=== PATIENT | female | born 1995 | race African-American/Black ===

== ENCOUNTER 2020-11-26 14:02 | Emergency (ER) | payer SELFPAY ==
--- NOTE | ~2020-11-26 | XR_ITS ---
EXAMINATION: XR CHEST CLINICAL INFORMATION: Sickle cell crisis COMPARISON: None TECHNIQUE: Frontal view of the chest was obtained. FINDINGS: Right chest wall Mediport terminates of the right chest wall, catheter within the superior right atrium. There are a few patchy opacities over the lungs which may relate to portable technique. No pleural effusion or pneumothorax. Normal heart size and pulmonary vascularity. Bones are unremarkable.. XR/XR chest 1V IMPRESSION: There are a few bilateral patchy opacities projecting over the lungs, nonperipheral in distribution. Favor summation shadow related to portable technique. Recommend departmental radiographs.
[2020-11-26 14:21] VITALS: BP 113/71; PULSE 125; RESP 20; TEMP 36.8; O2SAT 97; BMI 22.1
--- NOTE | 2020-11-26 16:11 | ED.GENADULT ---
HPI - General Adult General Chief complaint: General Medical Stated complaint: SICKLE CELL CRISIS Time Seen by Provider: 11/26/20 16:00 Source: patient Mode of arrival: ambulatory Limitations: no limitations History of Present Illness HPI narrative: Patient comes to emergency room complaining of a sickle cell crisis. Patient is visiting from [place]. Patient has history of lupus, sickle cell, anti phospholipid syndrome and PEs. Patient states that she usually gets 1 L of lactated Ringer's and IV Dilaudid every month, also has p.o. Dilaudid medication p.r.n. pain. Yesterday she received her IV fluids through the port. Patient is trying to avoid to stay out of the hospital, she came for her mother's , states she only comes to emergency room when her pain is 9/10 and her p.o. Dilaudid does not help. Patient denies chest pain, no shortness of breath, no abdominal pain. Patient states that most of her pain is ?bony pain? from the hips down. Patient states that she knows that she will be anemic, she only gets blood transfusion when her hemoglobin is below 5.0 MD complaint: Sickle cell crisis Related Data Home Medications Medication Instructions Recorded Confirmed Dilaudid 11/26/20 Eliquis 11/26/20 Imuran 11/26/20 OxyContin 11/26/20 folic acid 11/26/20 hydroxyurea 11/26/20 prednisone 11/26/20 tizanidine 11/26/20 11/26/20 Allergies Allergy/AdvReac Type Severity Reaction Status Date / Time No Known Allergies Allergy Verified 11/26/20 14:26 Review of Systems Review of Systems: Constitutional : No Weight loss, No Fever, No Chills, No Night Sweats, No Fatigue, No Malaise ENT/Mouth : No Hearing loss, No Ear Pain, No Nasal Congestion, No Sinus Pain, No Hoarseness, No sore throat, No Rhinorrhea, No Swallowing Difficulty Eyes: No Eye Pain, No Swelling, No Redness, No Foreign Body, No Discharge, No Vision Changes Cardiovascular : No Chest Pain, No SOB, No Dyspnea on Exertion, No Orthopnea, No Edema, No Palpitations Respiratory : No Cough, No Sputum, No Wheezing, No Smoke Exposure, No Dyspnea Gastrointestinal : No Nausea, No Vomiting, No Diarrhea, No Constipation, No abdominal Pain, No Hematochezia, No Melena Genitourinary : no irregular bleeding, No Dysuria, No Urinary Frequency, No Hematuria, No Urinary Incontinence, No Urgency, No Flank Pain, No Urinary Flow Changes, No Hesitancy Musculoskeletal : Patient complaining of bilateral hip pain, leg pain. Skin : No Skin Lesions, No rash Neuro : No Weakness, No Numbness, No Paresthesias, No Loss of Consciousness, No Dizziness, No Headache Psych : No Anxiety/Panic, No Depression, No SI/HI/AH/VH, No Social Issues, Heme/Lymph: No Bruising, No Bleeding,No Lymphadenopathy Endocrine : No Polyuria, No Polydipsia, No Temperature Intolerance [facility] Past Medical History Medical History (Updated 11/26/20 @ 16:20 by Nisa Packer MD) Antiphospholipid syndrome Lupus Pulmonary emboli Sickle cell anemia with crisis Sickle cell anemia with pain Social History Social History Advance Directives: No Advance Directives Information Provided: No Physical Exam Vital Signs: Vital Signs: Last Vital Signs Temp 98.2 F 11/26/20 14:21 Pulse 125 H 11/26/20 14:21 Resp 20 11/26/20 14:21 BP 113/71 11/26/20 14:21 Pulse Ox 97 11/26/20 14:21 Body Mass Index 22.1 Appearance: Alert. Oriented X3. No acute distress. Eyes: Pupils equal, round and reactive to light. ENT: Pharynx normal. Neck: Normal inspection. Neck supple. No lymph nodes noted. No crepitus CVS: Normal heart rate and rhythm. Pulses normal. Normal S1 and S2 Respiratory: No respiratory distress. Breath sounds normal. No Wheezing. No rales Abdomen: Soft and nontender. No rigidity. No distention. good BS x4 Skin: Skin warm and dry. Normal skin color. Normal skin turgor. Extremities: No lower extremity edema. Pain to palpation over hips and lower extremities Neuro: Oriented X 3. No motor deficit. No sensory deficit. Moving all extermities. No slurred speech. Course Course Course Narrative: Patient's labs and imaging are pending. Patient received IV fluids and IV Dilaudid. Sign-out given to Dr. Ba. Discharge Plan Discharge Clinical Impression: Sickle cell crisis Prescriptions: No Action Dilaudid RF: 0 Eliquis RF: 0 Imuran RF: 0 OxyContin RF: 0 folic acid RF: 0 hydroxyurea RF: 0 prednisone RF: 0 tizanidine RF: 0
[2020-11-26] MEDS: HYDROmorphone HCl 2 MG/ML VIAL IVPUSH ×3 (16:47→19:25)
[2020-11-26] MEDS: ondansetron HCL 4 MG/2 ML VIAL IVPUSH (16:47)
[2020-11-26] MEDS: diphenhydrAMINE HCL 50 MG/ML VIAL IVPUSH (16:47)
[2020-11-26] MEDS: 0.9 % Sodium Chloride 1,000 ML 999 ML IVCONT ×2 (16:49→18:29)
[2020-11-26 17:10] LABS: Appearance Urine CLEAR; Color Urine YELLOW; Glucose Urine UA NEG (NEG); Leukocyte Esterase Urine NEG (NEG); Nitrite Urine NEG (NEG); Urine Blood NEG (NEG); Urine Ketones NEG (NEG); Urine Protein NEG (NEG-TRACE)
[2020-11-26 17:11] LABS: UPreg QC Valid YES; Urine Pregnancy NEGATIVE (NEGATIVE)
[2020-11-26 17:26] LABS: MANUAL DIFF FLAG SCAN; PLT CLUMP 1; Retic HGB Equivalent 29.7 pg (30.0-35.0); SCAN SMEAR FLAG 1
[2020-11-26 17:29] LABS: Basophils Percent Auto 0.2 % (0-2); Eosinophils Absolute Auto 0.1 X10*3/uL (0.0-0.4); Eosinophils Percent Auto 1.2 % (0-4); Hematocrit 29.5 % (37-47); Hemoglobin 8.8 g/dl (12.0-16.0); Imm Gran Abs Auto 0.04 X10*3/uL (0.00-0.03); Imm Gran Pct Auto 0.5 % (0.0-0.4); Immature Retic Fraction 12.9 % (3.0-15.9); Lymphocytes Absolute Auto 1.9 X10*3/uL (1.2-4.9); Lymphocytes Percent Auto 23.3 % (20-40); Mean Corpuscular HGB Conc 29.8 g/dl (31.0-35.0); Mean Platelet Volume 9.5 fL (9.4-12.3); Monocytes Percent Auto 12.9 % (2-11); Neutrophils Percent Auto 61.9 % (45-73); Platelet Count 272 X10*3/uL (160-400); Red Blood Count 3.39 X10*6/uL (4.20-5.50); Reticulocytes Absolute 0.072 X10*6/uL (0.026-0.095); White Blood Count 8.1 X10*3/uL (4.8-10.8)
[2020-11-26 17:41] LABS: Prothrombin Time 12.4 SEC (10.8-13.0)
[2020-11-26 17:43] VITALS: BP 114/75; PULSE 106; RESP 16; TEMP 36.5; O2SAT 99
[2020-11-26 17:50] LABS: Reticulocyte Percent 1.9 % (0.5-1.8)
[2020-11-26 18:26] LABS: SLIDE REVIEW VERIFIED
[2020-11-26 18:46] LABS: Alanine Aminotransferase 69 U/L (0-31); Albumin Level 3.9 g/dL (3.5-5.0); Alkaline Phosphatase 453 U/L (39-117); Anion Gap 14 (12-20); Aspartate Amino Transferase 69 U/L (5-31); Bilirubin Direct 0.2 mg/dL (0.0-0.5); Bilirubin Total 0.4 mg/dL (0.0-1.0); Blood Urea Nitrogen 8 mg/dL (9-16); Calcium 8.5 mg/dL (8.4-10.2); Carbon Dioxide 24 mmol/L (22-29); Chloride 105 mmol/L (96-108); Creatinine Clr Calc Pharmacy 102.8; Estimated Glomerular Filt Rate > 60; Glucose Random 88 mg/dL (60-115); Potassium 4.5 mmol/L (3.3-5.1); Sodium 138 mmol/L (135-145)
--- NOTE | 2020-11-26 19:00 | PC.NURSE ---
PT REQUESTING ADDITIONAL PAIN RX, SAYING 6MG DILAUDID TYPICALLY SOOTHES PAIN FLARES. AGREEABLE TO DISCHARGE. REFUSED SECOND LITER OF NS. COMPLIANT WITH O2 VIA NC.
[2020-11-26 19:27] VITALS: BP 104/75; PULSE 92; O2SAT 100
== END 2020-11-26 20:10 | disposition home or self-care (01) ==
PROVIDERS: Emergency Provider Emergency Medicine
DX: D57.00 Hb-SS disease with crisis, unspecified (principal); M32.9 Systemic lupus erythematosus, unspecified; Z79.01 Long term (current) use of anticoagulants; Z79.899 Other long term (current) drug therapy
CPT/HCPCS: 36415; 71045; 80048; 80076; 81003; 81025; 85025; 85045; 85610; 96361; 96365; 96375; 96376; 99284; J1170; J1200; J2405